=== PATIENT | female | born 1980 | race Caucasian/White ===

== ENCOUNTER 2022-04-24 08:15 | Emergency (ER) | payer MEDICAID ==
[~2022-04-24] VITALS: Ht 165.1 cm; Wt 122.0 kg
[2022-04-24 09:15] LABS: BASOPHILS % (AUTO) 0.2 % (0-1); EOSINOPHILS # (AUTO) 0.2 X10'3 (0-0.9); HEMATOCRIT 42.5 % (35.0-45.0); HEMOGLOBIN 13.4 g/dl (12.0-16.0); LYMPHOCYTES % (AUTO) 5.5 % (21-51); MEAN CORPUSCULAR HEMOGLOBIN 25.7 PG (27.0-31.0); MEAN CORPUSCULAR HGB CONC 31.5 g/dL (33.0-36.5); MEAN CORPUSCULAR VOLUME 81.4 FL (78-98); MEAN PLATELET VOLUME 7.6 FL (7.4-10.4); MONOCYTES # (AUTO) 0.8 X10'3 (0-0.9); MONOCYTES % (AUTO) 4.5 % (2-12); NEUTROPHILS # (AUTO) 15.8 X10'3 (1.8-7.7); NEUTROPHILS % (AUTO) 88.8 % (42-75); PLATELET COUNT 384 X10'3 (140-440); RED BLOOD COUNT 5.22 X10'6 (4.20-5.60); RED CELL DISTRIBUTION WIDTH 17.1 % (11.5-14.5); WHITE BLOOD COUNT 17.8 X10'3 (4.5-11.0)
[2022-04-24] MEDS ORDERED: metoclopramide 5 mg/ml inj IV ONE (09:25)
[2022-04-24] MEDS ORDERED: famotidine/PF IV inj 40 MG in normal saline 100ml IV soln 100 ML IV ONE (09:25)
[2022-04-24] MEDS ORDERED: normal saline 1000ML IV soln IV ONE (09:25)
[2022-04-24 09:27] LABS: ALANINE AMINOTRANSFERASE 33 U/L (12-78); ALBUMIN 3.4 G/DL (3.4-5.0); ALBUMIN/GLOBULIN RATIO 0.8 (1.1-1.5); ALKALINE PHOSPHATASE 105 IU/L (46-116); ANION GAP 11 (8-16); ASPARTATE AMINO TRANSFERASE 25 U/L (10-37); BILIRUBIN,TOTAL 0.8 MG/DL (0.1-1.0); BLOOD UREA NITROGEN 13 MG/DL (7-18); BUN/CREATININE RATIO 15.5 (6.6-38.0); CALCIUM 8.4 MG/DL (8.5-10.1); CHLORIDE 103 MMOL/L (99-107); CREATININE 0.84 MG/DL (0.40-0.90); GLUCOSE 145 MG/DL (70-104); LIPASE 98 U/L (73-393); POTASSIUM 4.2 MMOL/L (3.5-5.1); SODIUM 138 MMOL/L (135-145); TOTAL CARBON DIOXIDE 23.8 MMOL/L (24-32); TOTAL PROTEIN 7.9 G/DL (6.4-8.2); eGFR 75 ML/MIN
[2022-04-24] MEDS ORDERED: famotidine/PF 10 mg/ml inj IV ONE (09:40)
[2022-04-24 09:55] LABS: CLARITY,URINE CLEAR (Clear); COLOR,URINE YELLOW (Yellow); GLUCOSE, URINE NEGATIVE (Neg); KETONES,URINE NEGATIVE (Neg); LEUKOCYTE ESTERASE ,URINE NEGATIVE (Neg); NITRITES, URINE NEGATIVE (Neg); OCCULT BLOOD,URINE TRACE-INTACT (Neg); PROTEIN,URINE NEGATIVE (Neg); UROBILINOGEN,URINE 0.2 E.U/dL (0.2-1.0)
[2022-04-24 09:58] LABS: URINE HCG NEGATIVE (NEG)
[2022-04-24 10:03] LABS: UA COLLECTION TYPE CLN CATCH MIDSTREAM
[2022-04-24 10:04] LABS: BACTERIA,URINE NONE SEEN /HPF (Neg); MUCUS STRANDS MODERATE /LPF (Neg); RBC,URINE 0-2 /HPF (0-2); SQUAMOUS EPITHELIAL CELL,UR FEW /LPF (FEW); WBC,URINE 0-4 /HPF (0-4)
[2022-04-24] MEDS ORDERED: iohexol 350MG/ML 100ml bottle IV ONE (10:50)
--- NOTE | 2022-04-24 13:48 | NUR ---
Pt past her oral challenge and will be D/C
[2022-04-24] MEDS ORDERED: LORA-269 PO (13:55)
[2022-04-24] MEDS ORDERED: FAMO20TA8 PO (13:55)
[2022-04-24] MEDS ORDERED: ONDA4TAB12 PO (13:55)
[2022-04-24 14:12] VITALS: BP 125/87
[2022-04-28] MEDS ORDERED: FAMO20TA8 PO (16:49)
[2022-04-28] MEDS ORDERED: ONDA4TAB12 PO (16:49)
[2022-04-28] MEDS ORDERED: LORA-269 PO (16:49)
== END 2022-04-24 14:21 | disposition home or self-care (01) ==
LOC: ER 08:16
DX: K29.70 Gastritis, unspecified, without bleeding (principal); R11.2 Nausea with vomiting, unspecified; F17.200 Nicotine dependence, unspecified, uncomplicated; Z88.1 Allergy status to other antibiotic agents; Z79.899 Other long term (current) drug therapy
CPT/HCPCS: 36415; 74177; 80053; 81001; 81025; 83605; 83690; 84145; 85025; 87040; 96361; 96374; 96375; 99285; J2765; J3490; J7030; Q9967

== ENCOUNTER 2022-09-02 16:25 | Emergency (ER) | payer MEDICAID ==
[~2022-09-02] VITALS: Ht 167.6 cm; Wt 124.0 kg
[~2022-09-02 16:25] MED LIST: FAMO20TA8 PO; LORA-269 PO; ONDA4TAB12 PO
[2022-09-02] MEDS ORDERED: ketorolac trometh inj. 60 MG/2 ML VIAL IM ONE (17:30)
[2022-09-02] MEDS ORDERED: orphenadrine citrate 60mg/2ml inj. IM ONE (17:30)
[2022-09-02] MEDS ORDERED: IBUP-1986 PO (18:06)
[2022-09-02] MEDS ORDERED: CYCL-1 PO (18:06)
[2022-09-02 18:27] VITALS: BP 169/96
== END 2022-09-02 18:28 | disposition home or self-care (01) ==
LOC: ER 16:26
DX: S16.1XXA Strain of muscle, fascia and tendon at neck level, initial encounter (principal); X58.XXXA Exposure to other specified factors, initial encounter; Y93.89 Activity, other specified; Y92.89 Other specified places as the place of occurrence of the external cause; Y99.8 Other external cause status
CPT/HCPCS: 72125; 96372; 99285; J1885; J2360